=== PATIENT | male | born 1955 | race Caucasian/White ===

== ENCOUNTER 2022-01-28 16:32 | Emergency (ER) | payer OTHER, SELFPAY ==
--- NOTE | ~2022-01-28 | XR_ITS ---
EXAMINATION: XR hip LT w PEL1V CLINICAL INFORMATION: Reason for Exam PAIN L HIP COMPARISON: None TECHNIQUE: Two views of the hip. Hip and one view of the pelvis. XR/XR hip LT w PEL1V FINDINGS/IMPRESSION: No acute fracture or dislocation. Mild degenerative changes of the bilateral hips with borderline loss of superolateral joint space. Soft tissues are unremarkable.
[2022-01-28 17:36] VITALS: BP 150/73; PULSE 85; O2SAT 98
[2022-01-28 17:41] VITALS: BP 135/72; PULSE 72; RESP 16; TEMP 36.1; O2SAT 96; BMI 33.8
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
== END 2022-01-28 20:26 | disposition home or self-care (01) ==
PROVIDERS: Emergency Provider Emergency Medicine
DX: Z04.1 Encounter for examination and observation following transport accident (principal); M25.552 Pain in left hip
CPT/HCPCS: 73502; 99283